=== PATIENT | female | born 1995 | race Caucasian/White ===

== ENCOUNTER 2016-10-02 19:52 | Emergency (ER) | payer OTHER ==
[2016-10-02 20:03] VITALS: BP 130/70; PULSE 79; TEMP 98.1; BMI 24.4
--- NOTE | 2016-10-02 20:29 | PDOC ---
History of Present Illness - General Chief Complaint: Nausea/Vomiting Stated Complaint: NAUSEA/VOMITING Time Seen by Provider: 10/02/16 20:16 History Source: Patient Exam Limitations: No Limitations - History of Present Illness Travel History: No Timing/Duration: reports: intermittent Abdominal Pain Onset Location: reports: epigastric Pain Radiation: reports: no radiation Activities at Onset: reports: none Alleviating Factors: improves with: Belching Past History - Travel Traveled outside of the country in the last 30 days: No Close contact w/someone who was outside of country & ill: No - Past Medical History Allergies/Adverse Reactions: Allergies Allergy/AdvReac Type Severity Reaction Status Date / Time tree and shrub pollen Allergy Mild Cough Verified 10/02/16 20:03 Home Medications: Ambulatory Orders Penicillin V Potassium [Pen Vee K] 500 mg PO TID #21 tablet 08/12/15 - Immunization History Immunization Up to Date: Yes - Psycho/Social/Smoking Cessation Hx Anxiety: No Suicidal Ideation: No Smoking History: Current every day smoker Have you smoked in the past 12 months: Yes Number of Cigarettes Smoked Daily: 7 Information on smoking cessation initiated: No 'Breaking Loose' booklet given: 03/01/15 Hx Alcohol Use: No Drug/Substance Use Hx: Yes Substance Use Type: Marijuana Hx Substance Use Treatment: No Abd/GI Specific PMHX - Complaint Specific PMHX Diverticulitis: No Gall Bladder Disease: No GERD: No Review of Systems - Review of Systems Able to Perform ROS?: Yes Comments:: 10/02/16 20:27 CONSTITUTIONAL: Absent: fever, chills, diaphoresis, generalized weakness, malaise, loss of appetite HEENT: Absent: rhinorrhea, nasal congestion, throat pain, throat swelling, difficulty swallowing, mouth swelling, ear pain, eye pain, visual Changes CARDIOVASCULAR: Absent: chest pain, loss of consciousness, palpitations, irregular heart rate, peripheral edema RESPIRATORY: Absent: cough, shortness of breath, dyspnea with exertion, orthopnea, wheezing, stridor, hemoptysis GASTROINTESTINAL: +epigastric pain, nausea, vomiting, diarrhea Absent: abdominal distension, constipation, melena, hematochezia GENITOURINARY: Absent: dysuria, frequency, urgency, hesitancy, hematuria, flank pain, genital pain MUSCULOSKELETAL: Absent: myalgia, arthralgia, joint swelling SKIN: Absent: rash, itching, pallor HEMATOLOGIC/IMMUNOLOGIC: Absent: easy bleeding, easy bruising, lymphadenopathy, frequent infections ENDOCRINE: Absent: unexplained weight gain, unexplained weight loss, heat intolerance, cold intolerance NEUROLOGIC: Absent: headache, focal weakness or paresthesias, dizziness, unsteady gait, seizure, mental status changes, bladder or bowel incontinence PSYCHIATRIC: Absent: anxiety, depression, suicidal or homicidal ideation, hallucinations. 10/02/16 20:28 Is the patient limited Burmese proficient: No *Physical Exam - Vital Signs Last Vital Signs Temp Pulse Resp BP Pulse Ox 98.1 F 79 18 130/70 100 10/02/16 19:59 10/02/16 19:59 10/02/16 19:59 10/02/16 19:59 10/02/16 19:59 - Physical Exam Comments: 10/02/16 20:28 GENERAL: Well developed, well nourished. Awake and alert. No acute distress. HEENT: Normocephalic, atraumatic. PERRLA, EOMI. No conjunctival pallor. Sclera are non- icteric. Moist mucous membranes. Oropharynx is clear. NECK: Supple. Full ROM. No JVD. Carotid pulses 2+ and symmetric, without bruits. No thyromegaly. No lymphadenopathy. CARDIOVASCULAR: Regular rate and rhythm. No murmurs, rubs, or gallops. Distal pulses are 2+ and symmetric. PULMONARY: No evidence of respiratory distress. Lungs clear to auscultation bilaterally. No wheezing, rales or rhonchi. ABDOMINAL: Soft. Non-tender. Non-distended. No rebound or guarding. No organomegaly. Normoactive bowel sounds. MUSCULOSKELETAL Normal range of motion at all joints. No bony deformities or tenderness. No CVA tenderness. EXTREMITIES: No cyanosis. No clubbing. No edema. No calf tenderness. SKIN: Warm and dry. Normal capillary refill. No rashes. No jaundice. NEUROLOGICAL: Alert, awake, appropriate. Cranial nerves 2-12 intact. No deficits to light touch and temperature in face, upper extremities and lower extremities. No motor deficits in the in face, upper extremities and lower extremities. Normoreflexic in the upper and lower extremities. Normal speech. Toes are down- going bilaterally. Gait is normal without ataxia. PSYCHIATRIC: Cooperative. Good eye contact. Appropriate mood and affect. ED Treatment Course - LABORATORY CBC & Chemistry Diagram: 10/02/16 20:40 10/02/16 20:40 Progress Note - Progress Note Progress Note: 20-year-old female presents to the emergency department complaining of epigastric abdominal cramping after having Sami takeout last evening at approximately 2200 hrs. Pain is described as 3/10 nonradiating intermittent cramping. The pain is alleviated when she belches and there are no exacerbating factors. Patient admits to one episode of vomiting last evening and approximately 4 episodes today. Patient denies any fever, chills, chest pain, shortness of breath, pelvic pain, flank pains, urinary symptoms: Frequency/ urgency/hesitancy, hematuria. Lmp: 09/22/2016 *DC/Admit/Observation/Transfer Diagnosis at time of Disposition: Gastroenteritis Nausea and vomiting Qualifiers: Vomiting type: unspecified Vomiting Intractability: non-intractable Qualified Code(s): R11.2 - Nausea with vomiting, unspecified - Discharge Dispostion Disposition: HOME Condition at time of disposition: Stable Admit: No - Referrals Referrals: STAFF,NOT ON [Primary Care Provider] - Ady Titus MD [Staff Physician] - Luis Villar MD [Staff Physician] - - Patient Instructions Printed Discharge Instructions: DI for Nausea -- Adult, DI for Vomiting -- Adult, DI for Viral Gastroenteritis -- Adult Additional Instructions: Increase fluids Rest Follow up with your physician or the tube laser operator listed on your discharge Return back to the emergency department for severe/persistent or worsening symptoms.
[2016-10-02] MEDS ORDERED: SODIUM CHLORIDE 1,000 ML IV STA (20:32)
[2016-10-02 20:56] LABS: BASOPHIL 0.7 % (0-2.0); EOSINOPHIL 1.3 % (0-4.5); MCH 32.1 pg (25.7-33.7); MCHC 34.2 g/dl (32.0-36.0); MEAN CELL VOLUME 93.8 fl (80-96); MEAN PLT VOLUME 9.9 fl (7.5-11.1); NEUTROPHILS 65.5 % (42.8-82.8); PLATELET COUNT 187 K/MM3 (134-434); RDW 13.6 % (11.6-15.6)
[2016-10-02 20:57] LABS: URINE APPEARANCE SLCLOUDY; URINE BILIRUBIN NEGATIVE (NEGATIVE); URINE BLOOD NEGATIVE (NEGATIVE); URINE COLOR LTYELLOW; URINE GLUCOSE (UA) NEGATIVE (NEGATIVE); URINE KETONE NEGATIVE (NEGATIVE); URINE LEUK ESTERASE NEGATIVE (NEGATIVE); URINE NITRITE NEGATIVE (NEGATIVE); URINE PROTEIN NEGATIVE (NEGATIVE); URINE UROBILINOGEN NEGATIVE E.U./dl (0.2-1.0)
[2016-10-02] MEDS ORDERED: METOCLOPRAMIDE HCL INJECTION 10 MG/2 ML VIAL IVPUSH ONE (21:01)
[2016-10-02] MEDS ORDERED: METOCLOPRAMIDE HCL INJECTION 10 MG/2 ML VIAL ONE (21:11)
[2016-10-02 21:25] LABS: ALBUMIN 4.3 g/dl (3.4-5.0); ALK PHOS 61 U/L (45-117); AMYLASE 85 U/L (25-115); ANION GAP 8 (8-16); BILIRUBIN,TOTAL 0.6 mg/dL (0.2-1.0); CALCIUM 8.6 mg/dL (8.5-10.1); CO2 26 mmol/L (21-32); CREATININE 0.6 mg/dL (0.55-1.02); GLUCOSE,RANDOM 84 mg/dL (74-106); SGPT/ALT 25 U/L (12-78); TOT PROT 7.9 g/dl (6.4-8.2)
[2016-10-02 21:29] LABS: SGOT/AST 19 U/L (15-37)
[2016-10-02 21:45] LABS: PLATELET ESTIMATE ADEQUATE (NORMAL)
== END 2016-10-02 22:16 | disposition home or self-care (01) ==
LOC: JER 19:52 → SUPCPDRO 19:52 → JER 22:16
PROC: 3E033GC Introduction of Other Therapeutic Substance into Peripheral Vein, Percutaneous Approach (ICD-10-PCS; principal; 2016-10-02)
PROC: 3E0337Z Introduction of Electrolytic and Water Balance Substance into Peripheral Vein, Percutaneous Approach (ICD-10-PCS; 2016-10-02)
DX: K52.9 Noninfective gastroenteritis and colitis, unspecified (principal); F17.210 Nicotine dependence, cigarettes, uncomplicated
CPT/HCPCS: 36415; 80053; 81003; 82150; 83690; 84703; 85025; 96361; 96374; 99282-25

== ENCOUNTER 2018-01-21 16:45 | Emergency (ER) | payer OTHER ==
[2018-01-21 16:59] VITALS: BP 140/99; PULSE 83; TEMP 98.2; BMI 25.0
[2018-01-21] MEDS ORDERED: ACETAMINOPHEN 325 MG TABLET (FP) PO ONE (17:28)
--- NOTE | 2018-01-21 17:28 | PDOC ---
History of Present Illness - General Chief Complaint: Bite Stated Complaint: WOUND Time Seen by Provider: 01/21/18 17:07 History Source: Patient - History of Present Illness Timing/Duration: reports: yesterday Location: reports: extremities Past History - Past Medical History Allergies/Adverse Reactions: Allergies Allergy/AdvReac Type Severity Reaction Status Date / Time tree and shrub pollen Allergy Mild Cough Verified 01/21/18 17:09 Home Medications: Ambulatory Orders Acetaminophen [Tylenol] 2 tab PO Q6H #30 capsule 01/21/18 Acyclovir [Zovirax -] 800 mg PO 5XD #35 tablet 01/21/18 COPD: No - Immunization History Immunization Up to Date: Yes - Suicide/Smoking/Psychosocial Hx Smoking History: Current every day smoker Have you smoked in the past 12 months: Yes Number of Cigarettes Smoked Daily: 20 Information on smoking cessation initiated: Yes 'Breaking Loose' booklet given: 01/21/18 Hx Alcohol Use: No Drug/Substance Use Hx: Yes Substance Use Type: Marijuana Hx Substance Use Treatment: No Review of Systems - Review of Systems Constitutional: No: Fever ABD/GI: No: Nausea, Vomiting, Abdominal cramping : No: Dysuria Integumentary: Yes: Rash *Physical Exam - Vital Signs Last Vital Signs Temp Pulse Resp BP Pulse Ox 98.2 F 83 18 140/99 98 01/21/18 16:54 01/21/18 16:54 01/21/18 16:54 01/21/18 16:54 01/21/18 16:54 - Physical Exam General Appearance: Yes: Appropriately Dressed. No: Apparent Distress HEENT: positive: Normal Voice Neck: positive: Supple Respiratory/Chest: negative: Respiratory Distress Integumentary: positive: Dry, Warm, Other (~1-1/2 cm area of erythematous papule w/ central vesicles c/w shingles to postrior aspect of R thigh) Neurologic: positive: Fully Oriented, Alert, Normal Mood/Affect Medical Decision Making - Medical Decision Making 01/21/18 17:37 22-year-old female, approximately 6 weeks by dates, with here with rash. Patient states she developed a painful rash to posterior aspect of right thigh yesterday. Unable to site 2/2 pain. Concerned that she might have been bitten by an insect per patient. Denies any fever or chills. No abd pain, vag bleed of dysuria per pt See exam Shingles in early preg No issues with preg prior to now No as of yet -Dc w/ acyclovir and tylenol as d/w Dr Brewster who also evaluated pt -Discuss w/ pt the high risk of complications w/ TORCH infections, i.e congenital varicella syndrome, to f/u with OB on Tuesday -Reasons to return to ED d/w pt -contact precautions given 01/21/18 17:57 *DC/Admit/Observation/Transfer Diagnosis at time of Disposition: Shingles Qualifiers: Herpes zoster complications: unspecified herpes zoster complication Qualified Code(s): B02.8 - Zoster with other complications - Discharge Dispostion Disposition: HOME Condition at time of disposition: Good - Prescriptions Prescriptions: Acetaminophen [Tylenol] 2 tab PO Q6H #30 capsule Acyclovir [Zovirax -] 800 mg PO 5XD #35 tablet - Referrals Referrals: Jhoana Cabrera MD [Staff Physician] - - Patient Instructions Printed Discharge Instructions: Acyclovir Additional Instructions: You have shingles which is usually a reactivation of chickenpox from childhood. This is contagious only to patients who have never had chickenpox. Take medications as directed. As you are with shingles you need to follow up very closely with an OB/ FINISHED GARMENT INSPECTOR. We have given her the number for Dr. Cabrera. Please call, M.D. first thing Tuesday morning for an appointment. If symptoms worsen as discussed in ER, please return immediately - Post Discharge Activity Forms/Work/School Notes: Back to Work
[2018-01-21] MEDS ORDERED: ACETAMINOPHEN 325 MG TABLET (FP) ONE (17:35)
== END 2018-01-21 17:59 | disposition home or self-care (01) ==
LOC: JERFT 16:45
DX: O26.891 Other specified pregnancy related conditions, first trimester (principal); O98.511 Other viral diseases complicating pregnancy, first trimester; B02.9 Zoster without complications; Z3A.01 Less than 8 weeks gestation of pregnancy
CPT/HCPCS: 99281-25

== ENCOUNTER 2018-03-24 21:53 | Emergency (ER) | payer SELFPAY ==
--- NOTE | 2018-03-24 22:11 | PDOC ---
History of Present Illness - General Stated Complaint: 16 WEEK PREG,CRAMPS,PAIN History Source: Patient - History of Present Illness Initial Comments: 03/24/18 22:12 LMP: 12/27/2017 : none [phone] 03/25/18 01:54 22-year-old female presents to the ER complaining of pelvic cramping for the past 40 minutes prior to her arrival to the ER. Cramps are described as 4/10 nonradiating intermittent discomfort without fever, chills, nausea/vomiting, headache, dizziness, lightheadedness, back pains, chest pain, shortness of breath, abdominal pains, flank pains, vaginal bleed. Past History - Past Medical History Allergies/Adverse Reactions: Allergies Allergy/AdvReac Type Severity Reaction Status Date / Time tree and shrub pollen Allergy Mild Cough Verified 03/24/18 22:38 COPD: No - Immunization History Immunization Up to Date: Yes - Suicide/Smoking/Psychosocial Hx Smoking History: Current every day smoker Have you smoked in the past 12 months: Yes Number of Cigarettes Smoked Daily: 20 'Breaking Loose' booklet given: 01/21/18 Hx Alcohol Use: No Drug/Substance Use Hx: Yes Substance Use Type: Marijuana Hx Substance Use Treatment: No Review of Systems - Review of Systems Able to Perform ROS?: Yes Comments:: 03/25/18 01:53 CONSTITUTIONAL: Absent: fever, chills, diaphoresis, generalized weakness, malaise, loss of appetite HEENT: Absent: rhinorrhea, nasal congestion, throat pain, throat swelling, difficulty swallowing, mouth swelling, ear pain, eye pain, visual Changes CARDIOVASCULAR: Absent: chest pain, loss of consciousness, palpitations, irregular heart rate, peripheral edema RESPIRATORY: Absent: cough, shortness of breath, dyspnea with exertion, orthopnea, wheezing, stridor, hemoptysis GASTROINTESTINAL: Lower pelvic cramps Absent: abdominal pain, abdominal distension, nausea, vomiting, diarrhea, constipation, melena, hematochezia GENITOURINARY: Absent: dysuria, frequency, urgency, hesitancy, hematuria, flank pain, genital pain MUSCULOSKELETAL: Absent: myalgia, arthralgia, joint swelling SKIN: Absent: rash, itching, pallor Is the patient limited Romanian proficient: No *Physical Exam - Physical Exam Comments: 03/25/18 01:54 GENERAL: Well developed, well nourished. Awake and alert. No acute distress. HEENT: Normocephalic, atraumatic. PERRLA, EOMI. No conjunctival pallor. Sclera are non- icteric. Moist mucous membranes. Oropharynx is clear. NECK: Supple. Full ROM. No JVD. Carotid pulses 2+ and symmetric, without bruits. No thyromegaly. No lymphadenopathy. CARDIOVASCULAR: Regular rate and rhythm. No murmurs, rubs, or gallops. Distal pulses are 2+ and symmetric. PULMONARY: No evidence of respiratory distress. Lungs clear to auscultation bilaterally. No wheezing, rales or rhonchi. ABDOMINAL: Soft. Non-tender. Non-distended. No rebound or guarding. No organomegaly. Normoactive bowel sounds. MUSCULOSKELETAL Normal range of motion at all joints. No bony deformities or tenderness. No CVA tenderness. SKIN: Warm and dry. Normal capillary refill. No rashes. No jaundice. Pelvic: External genitalia normal without lesions. Vaginal vault is clear without blood or discharge. Cervix is closed. ED Treatment Course - LABORATORY CBC & Chemistry Diagram: 03/24/18 22:00 03/24/18 22:00 - RADIOLOGY Radiology Studies Ordered: Category Date Time Status TRANSVAGINAL US PREG [US] Stat Ultrasound 03/24/18 21:56 Ordered *DC/Admit/Observation/Transfer Diagnosis at time of Disposition: Qualifiers: Weeks of gestation: 16 weeks Qualified Code(s): Z3A.16 - 16 weeks gestation of - Discharge Dispostion Disposition: HOME Condition at time of disposition: Fair Decision to Admit order: No - Referrals Referrals: Grayson Vargas MD [Staff Physician] - - Patient Instructions Printed Discharge Instructions: DI for Abdominal Pain -- Early [place]: [place] [address].2 Your Ultrasounds shows you are 18 weeks and 1 day Heart beat at 140 Beats per minute Return to the ER for any concerns - Post Discharge Activity
[2018-03-24 22:38] VITALS: BP 121/65; PULSE 102; TEMP 99.2; BMI 25.8
[2018-03-24 23:01] LABS: BASO % 0.2 % (0-2.0); EOS % 2.7 % (0-4.5); HEMATOCRIT 35.1 % (32.4-45.2); HEMOGLOBIN 12.4 GM/dL (10.7-15.3); LYMPH % 27.3 % (8-40); MCHC 35.3 g/dl (32.0-36.0); MEAN CELL VOLUME 93.4 fl (80-96); MEAN PLT VOLUME 9.8 fl (7.5-11.1); MONO % 9.1 % (3.8-10.2); NEUT % 60.7 % (42.8-82.8); PLATELET COUNT 191 K/MM3 (134-434); RBC 3.75 M/mm3 (3.60-5.2); RDW 13.1 % (11.6-15.6); WHITE BLOOD COUNT 5.1 K/mm3 (4.0-10.0)
[2018-03-24 23:07] LABS: URINE APPEARANCE CLEAR; URINE BILIRUBIN NEGATIVE (<2.0 mg/dL); URINE COLOR YELLOW; URINE GLUCOSE (UA) NEGATIVE (NEGATIVE); URINE KETONE NEGATIVE (NEGATIVE); URINE LEUK ESTERASE NEGATIVE (NEGATIVE); URINE NITRITE NEGATIVE (NEGATIVE); URINE PROTEIN NEGATIVE (NEGATIVE); URINE UROBILINOGEN 4.0 E.U/dl mg/dL (0.2-1.0)
[2018-03-24 23:25] LABS: ALBUMIN 3.3 g/dl (3.4-5.0); ANION GAP 9 MMOL/L (8-16); BILIRUBIN,TOTAL 0.1 mg/dL (0.2-1.0); BLOOD UREA NITROGEN 13 mg/dL (7-18); CALCIUM 8.5 mg/dL (8.5-10.1); CHLORIDE 107 mmol/L (98-107); CO2 24 mmol/L (21-32); CREATININE 0.5 mg/dL (0.55-1.02); GLUCOSE,RANDOM 72 mg/dL (74-106); POTASSIUM 3.9 mmol/L (3.5-5.1); SGOT/AST 16 U/L (15-37); SGPT/ALT 23 U/L (12-78); SODIUM 140 mmol/L (136-145); TOT PROT 7.2 g/dl (6.4-8.2)
[2018-03-24 23:40] LABS: ALK PHOS 52 U/L (45-117)
== END 2018-03-25 01:00 | disposition home or self-care (01) ==
LOC: JER 21:53
DX: O26.892 Other specified pregnancy related conditions, second trimester (principal); R10.2 Pelvic and perineal pain; Z3A.16 16 weeks gestation of pregnancy
CPT/HCPCS: 36415; 76815-TC; 80053; 81003; 84702; 85025; 86850; 86900; 86901; 99281-25

== ENCOUNTER 2018-08-31 12:05 | Inpatient (IN) | payer OTHER ==
[2018-08-31] MEDS ORDERED: DINOPROSTONE 10 MG VAGINAL SUPPOSITORY VG ONE (13:00)
[2018-08-31] MEDS ORDERED: SODIUM PHOSPHATE/NA BIPHOS 133 ML ENEMA PR ONE (13:10)
--- NOTE | 2018-08-31 13:32 | HP ---
Past Medical History - Primary Care Physician PCP:: Jhoana Cabrera - Admission Chief Complaint: 22 h/f , 41 weeks by sono & 41.3 weeks by dates is admitted for induction of labor History of Present Illness: PNC at [facility] wt gain during pregn 70lbs Last visit at 36 weks . pt has been seen in L&D at [facility] 08/11, 08/28 & 08/30 for labor asses . FHR tracing category -1 everytime . 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 Weeks Gestation by Dates: 41.3 ...EDC by Dates: 08/21/18 ...EDC by Sono: 08/24/18 (41 weeks by sono ) Infectious Disease: Yes: STD's (h/o HSV positive) Psych: No: Addictions, Anxiety, Bipolar, Depression, Panic, Psychosis, Schizophrenia, Other - Past Surgical History Past Surgical History: Yes: None Hx Myomectomy: No Hx Transabdominal Cerclage: No - Smoking History Smoking history: Current every day smoker Have you smoked in the past 12 months: Yes Aproximately how many cigarettes per day: 20 - Alcohol/Substance Use Hx Alcohol Use: No History of Substance Use: reports: Marijuana (urine drug screen pos 08/11/18) Home Medications - Allergies Allergies/Adverse Reactions: Allergies Allergy/AdvReac Type Severity Reaction Status Date / Time No Known Allergies Allergy Verified 08/28/18 23:13 - Home Medications Home Medications: Ambulatory Orders Vit 108/Iron/Folic AC [ One Tablet] 1 tab PO DAILY 08/11/18 Physical Exam - Maternity Vital Signs: Selected Entries 08/31/18 13:00 Pulse Rate 84 Blood Pressure 115/68 Blood Pressure 83 Mean WT 230 LBS Constitutional: Yes: Well Nourished, Obese Eyes: Yes: WNL HENT: Yes: WNL, Normocephalic, Other Neck: Yes: WNL Cardiovascular: Yes: WNL, Regular Rate and Rhythm Lungs: Clear to auscultation Breast(s): Yes: WNL - Abdominal Exam/OB Fundal Height: 40 Number of Fetuses: Single Presentation: Vertex Contractions: No Monitor Mode: External Heart Rate (range): 150 Heart Rate Location: [facility] Category: I Accelerations: Uniform Decelerations: None - Vaginal Exam/OB Vaginal Bleediing: No Speculum Exam: No Dilatation (cm): close, Effacement (%): unefface Amniotic Membrane Status: Intact Presentation: Vertex/Position Station: -3 - Physical Exam Musculoskeletal: Yes: WNL Extremities: Yes: WNL Edema: LLE: 1+, RLE: 1+ Integumentary: Yes: WNL, Tattoos, Other (skin acne on face) Deep Tendon Reflex Grade: Normal +2 ...Motor Strength: WNL Psychiatric: Yes: WNL, Alert, Oriented Problem List - Problems (1) Post term , 41 weeks Code(s): O48.0 - POST-TERM ; Z3A.41 - 41 WEEKS GESTATION OF (2) GBS bacteriuria Code(s): R82.71 - BACTERIURIA (3) Obese Code(s): E66.9 - OBESITY, UNSPECIFIED (4) Elective induction of labor planned Code(s): TIQ7940 - (5) with care elsewhere, antepartum Code(s): Z34.90 - ENCNTR FOR SUPRVSN OF NORMAL , UNSP, UNSP TRIMESTER (6) Substance abuse affecting , antepartum Code(s): O99.320 - DRUG USE COMPLICATING , UNSPECIFIED TRIMESTER Assessment/Plan 22 yrs , 41.3 wks by dates & 41 weeks by sono admitted for induction of labor urine gbs pos . rx iv ampicillin start when uc are regular cervidil insertion done at 1.00pm . Plan Trial of labor for vaginal delivery Labor management handed over to Dr Alicia NEGRO talent acquisition sourcer after 2.00 PM
[2018-08-31 13:40] VITALS: BMI 34.9
[2018-08-31 15:16] LABS: BASO % 0.1 % (0-2.0); HEMATOCRIT 35.4 % (32.4-45.2); HEMOGLOBIN 12.2 GM/dL (10.7-15.3); LYMPH % 19.6 % (8-40); MCH 32.4 pg (25.7-33.7); MCHC 34.3 g/dl (32.0-36.0); MEAN CELL VOLUME 94.4 fl (80-96); MEAN PLT VOLUME 9.9 fl (7.5-11.1); MONO % 7.7 % (3.8-10.2); NEUT % 71.6 % (42.8-82.8); PLATELET COUNT 166 K/MM3 (134-434); RBC 3.75 M/mm3 (3.60-5.2); RDW 13.6 % (11.6-15.6); WHITE BLOOD COUNT 6.2 K/mm3 (4.0-10.0)
[2018-08-31 15:31] LABS: INR 0.99 (0.83-1.09); PROTHROMBIN TIME (PATIENT) 11.7 SEC (9.7-13.0)
[2018-08-31 15:51] LABS: ALK PHOS 149 U/L (45-117); ANION GAP 9 MMOL/L (8-16); BILIRUBIN,TOTAL 0.4 mg/dL (0.2-1); BLOOD UREA NITROGEN 10 mg/dL (7-18); CALCIUM 8.5 mg/dL (8.5-10.1); CHLORIDE 105 mmol/L (98-107); CO2 24 mmol/L (21-32); CREATININE 0.5 mg/dL (0.55-1.3); GLUCOSE,RANDOM 69 mg/dL (74-106); POTASSIUM 3.8 mmol/L (3.5-5.1); SGOT/AST 16 U/L (15-37); SGPT/ALT 16 U/L (13-61); SODIUM 138 mmol/L (136-145); TOT PROT 7.1 g/dl (6.4-8.2)
[2018-08-31 16:53] LABS: URINE APPEARANCE CLEAR; URINE BILIRUBIN NEGATIVE (<2.0 mg/dL); URINE COLOR YELLOW; URINE GLUCOSE (UA) NEGATIVE (NEGATIVE); URINE KETONE NEGATIVE (NEGATIVE); URINE LEUK ESTERASE NEGATIVE (NEGATIVE); URINE NITRITE NEGATIVE (NEGATIVE); URINE PROTEIN NEGATIVE (NEGATIVE); URINE UROBILINOGEN 4.0 E.U/dl mg/dL (0.2-1.0)
[2018-08-31 17:12] LABS: COCAINE, UR NEGATIVE ng/ml (CUTOFF=300); METHADONE, UR NEGATIVE ng/ml (CUTOFF=300); OPIATES, URI NEGATIVE ng/ml (CUTOFF=300); PHENCYCLIDINE,URINE NEGATIVE ng/ml (CUTOFF=25); URINE AMPHETAMINES NEGATIVE ng/ml (CUTOFF=500); URINE BARBITURATES NEGATIVE ng/ml (CUTOFF=200); URINE BENZODIAZEPINES NEGATIVE ng/ml (CUTOFF=200)
[2018-08-31] MEDS ORDERED: PROMETHAZINE HCL 25 MG/1 ML VIAL IVPB ONE (17:30)
[2018-08-31] MEDS ORDERED: BUTORPHANOL TARTRATE 2 MG/ML VIAL IVPB ONE (17:30)
[2018-08-31] MEDS: DEXTROSE 5%-LACTATED RINGERS 1,000 ML IV SCH ×2 (17:30→22:30)
[2018-08-31] MEDS ORDERED: TUBERCULIN PPD 5 TU/0.1ML SYRINGE (IN PATIENT USE ONLY) ID ONE (18:00)
[2018-09-01] MEDS ORDERED: AMPICILLIN SODIUM 2 GM VIAL ONE (01:04)
[2018-09-01] MEDS ORDERED: AMPICILLIN - 2 GM in SODIUM CHLORIDE 100 ML IVPB ONE (01:30)
[2018-09-01] MEDS: AMPICILLIN - 1 GM in SODIUM CHLORIDE 100 ML IVPB SCH ×3 (05:30→13:24)
[2018-09-01] MEDS ORDERED: AMPICILLIN SODIUM 1 GM VIAL ONE ×3 (05:41→13:09)
[2018-09-01] MEDS ORDERED: OXYTOCIN 30 UNITS in 0.9% NS 30 UNIT/500 ML INFUS.BAG IVPB ONE (05:41)
[2018-09-01] MEDS ORDERED: OXYTOCIN 30 UNITS in 0.9% NS 30 UNIT/500 ML INFUS.BAG IVPB SCH (06:30)
[2018-09-01] MEDS: DEXTROSE 5%-LACTATED RINGERS 1,000 ML IV SCH ×2 (09:00→21:55)
[2018-09-01] MEDS ORDERED: ONDANSETRON 4 MG/2 ML VIAL IVPUSH PRN (12:23)
[2018-09-01] MEDS ORDERED: morphine SULFATE/Preservative Free 0.5 MG/ML (1cc Syringe) ONE (12:34)
[2018-09-01] MEDS ORDERED: OXYTOCIN 20 UNITS in 0.9% NS 40 UNIT/2,000 ML INFUS.BAG IV ONE (13:09)
[2018-09-01] MEDS ORDERED: CITRIC ACID/SODIUM CITRATE 30 ML UNIT-DOSE CUP PO ONE ×2 (14:00→14:07)
[2018-09-01] MEDS ORDERED: ELECTROLYTE-148 SOLN 1,000 ML IV SCH ×3 (14:00→15:00)
[2018-09-01] MEDS ORDERED: WITCH HAZEL 50% (TUCKS) 40 PAD/JAR PAD TP PRN (14:10)
[2018-09-01] MEDS ORDERED: diphenhydrAMINE HCL 25 MG CAPSULE (FP) PO PRN (14:10)
[2018-09-01] MEDS ORDERED: IBUPROFEN 800 MG/8 ML IJ IVPB PRN (14:10)
[2018-09-01] MEDS ORDERED: BENZOCAINE 28 GM HEMORRHOIDAL OINTMENT PR PRN (14:10)
[2018-09-01] MEDS ORDERED: METHYLERGONOVINE MALEATE 0.2 MG/1 ML AMP IM PRN (14:10)
[2018-09-01] MEDS ORDERED: BENZOCAINE 20% 57 GM BOTTLE TP PRN (14:10)
[2018-09-01] MEDS ORDERED: oxyCODONE HCL 5 MG TABLET PO PRN (14:10)
--- NOTE | 2018-09-01 14:14 | PN ---
Progress Note (short form) - Note Progress Note: cx 1 cm 70 vx -4 mi, fhr cat 1 , regular conraction, no progress since 4 am tiday, declined induction, requesting c/s. risks discussed
[2018-09-01] MEDS ORDERED: OXYTOCIN 20 UNITS in 0.9% NS 1,000 ML IV SCH (14:15)
[2018-09-01] MEDS ORDERED: DEXTROSE 5%-LACTATED RINGERS 1,000 ML IV SCH (14:15)
[2018-09-01] MEDS ORDERED: OXYTOCIN 20 UNITS in 0.9% NS 20 UNIT/1,000 ML INFUS.BAG IV SCH (14:15)
[2018-09-01] MEDS ORDERED: LIDO 2%/EPI 1:200000 PRESRVFRE (20 ML SDVIAL) ONE (14:26)
[2018-09-01] MEDS ORDERED: SUCCINYLCHOLINE CHLORIDE 200 MG/10 ML VIAL ONE (14:49)
[2018-09-01] MEDS ORDERED: PROPOFOL 20 ML ONE ×2 (14:49→14:57)
[2018-09-01] MEDS ORDERED: LIDOCAINE HCL/PF 2% SDV 5ML VIAL ONE (14:49)
[2018-09-01] MEDS ORDERED: MIDAZOLAM HCL 2 MG/2 ML SINGLE DOSE VIAL ONE (14:55)
[2018-09-01] MEDS ORDERED: DEXAMETHASONE SOD PHOSPHATE 4 MG/1 ML VIAL ONE (14:56)
[2018-09-01] MEDS ORDERED: KETOROLAC TROMETHAMINE 30 MG/1 ML VIAL ONE (14:56)
[2018-09-01] MEDS ORDERED: PHENYLEPHRINE HCL 10 MG/1 ML SINGLE DOSE VIAL ONE (15:10)
[2018-09-01] MEDS ORDERED: ACETAMINOPHEN 1000 MG/100 ML VIAL (NON FORMULARY) IVPB ONE (15:28)
[2018-09-01] MEDS ORDERED: HYDROmorphone *PCA* 10MG/50ML DISP.SYRIN PCA SCH (15:30)
[2018-09-01 15:36] LABS: ARTERIAL BLOOD GAS BASE EXCESS 0.3 meq/l (-2-2); ARTERIAL BLOOD GAS PCO2 52.1 mmHg (35-45); ARTERIAL BLOOD GAS pH 7.33 (7.35-7.45)
[2018-09-01 15:40] LABS: ARTERIAL BLD GAS O2 SATURATION 39.6 % (90-98.9); ARTERIAL BLOOD GAS PO2 20.3 mmHg (80-100); VENOUS PC02 44.4 mmHg (38-52); VENOUS PH 7.36 (7.32-7.42); VENOUS PO2 29.9 mmHg (28-48)
[2018-09-01] MEDS ORDERED: ACETAMINOPHEN INJECTION 100 ML IVPB ONE (16:13)
[2018-09-01] MEDS ORDERED: HYDROmorphone *PCA* 10MG/50ML DISP.SYRIN PCA ONE (16:26)
[2018-09-01] MEDS: CEFAZOLIN 1 GM/D5W 1 GM/50 ML BAG IVPB SCH (18:00)
[2018-09-01] MEDS ORDERED: CEFAZOLIN 1 GM/D5W 1 GM/50 ML BAG ONE (18:02)
[2018-09-02] MEDS: CEFAZOLIN 1 GM/D5W 1 GM/50 ML BAG IVPB SCH (01:05)
[2018-09-02] MEDS ORDERED: PCA PUMP KEY 1 EACH EACH ONE (01:52)
[2018-09-02] MEDS: ACETAMINOPHEN 325 MG TABLET (FP) PO PRN ×4 (04:35→16:40)
[2018-09-02] MEDS: IBUPROFEN 600 MG TABLET (FP) PO PRN ×5 (04:37→21:51)
[2018-09-02] MEDS: oxyCODONE HCL 5 MG TABLET PO PRN ×5 (04:37→21:52)
[2018-09-02] MEDS: SIMETHICONE 80 MG TAB.CHEW (FP) PO PRN ×5 (04:37→21:52)
--- NOTE | 2018-09-02 08:26 | PN ---
Post Progress Note Post Day: 1 Type of Delivery: Primary C/S Vital Signs: Vital Signs Temperature 98.1 F 09/02/18 06:00 Pulse Rate 71 09/02/18 06:00 Respiratory Rate 18 09/02/18 06:00 Blood Pressure 115/63 09/02/18 06:00 O2 Sat by Pulse Oximetry (%) 99 09/01/18 17:35 Uterus: Yes: Fundus Firm Incision: Yes: Dressing dry and intact Abdomen/GI: Yes: Abdomen soft Lochia: Yes: Rubra Lochia, amount: Small Extremities: Yes: Calves non-tender - Labs Labs: CBC WBC 6.2 K/mm3 (4.0-10.0) 08/31/18 14:20 RBC 3.75 M/mm3 (3.60-5.2) 08/31/18 14:20 Hgb 12.2 GM/dL (10.7-15.3) 08/31/18 14:20 Hct 35.4 % (32.4-45.2) 08/31/18 14:20 MCV 94.4 fl (80-96) 08/31/18 14:20 MCH 32.4 pg (25.7-33.7) 08/31/18 14:20 MCHC 34.3 g/dl (32.0-36.0) 08/31/18 14:20 RDW 13.6 % (11.6-15.6) 08/31/18 14:20 Plt Count 166 K/MM3 (134-434) 08/31/18 14:20 MPV 9.9 fl (7.5-11.1) 08/31/18 14:20 Absolute Neuts (auto) 4.5 K/mm3 (1.5-8.0) 08/31/18 14:20 Neutrophils % 71.6 % (42.8-82.8) 08/31/18 14:20 Lymphocytes % 19.6 % (8-40) D 08/31/18 14:20 Monocytes % 7.7 % (3.8-10.2) 08/31/18 14:20 Eosinophils % 1.0 % (0-4.5) 08/31/18 14:20 Basophils % 0.1 % (0-2.0) 08/31/18 14:20 Nucleated RBC % 0 % (0-0) 08/31/18 14:20 Assessment/Plan 22yo s/p PLTCS, POD#1 Routine PP care Po pain control OOB, ambulate Labs reviewed Anticipate d/c to home by POD#4
--- NOTE | 2018-09-02 09:07 | PN ---
Progress Note (short form) - Note Progress Note: POD #1 s/p C/s under GA. Pain is well controlled today; HYDROGEOLOGIST was d/c'ed, and pt on PO pain meds. Able to ambulate without issue. No anesthetic complications/ difficulties noted.
[2018-09-02 10:25] LABS: BASO % 0.2 % (0-2.0); EOS % 0.5 % (0-4.5); HEMATOCRIT 29.9 % (32.4-45.2); HEMOGLOBIN 10.2 GM/dL (10.7-15.3); LYMPH % 13.8 % (8-40); MCHC 34.1 g/dl (32.0-36.0); MEAN CELL VOLUME 93.9 fl (80-96); MEAN PLT VOLUME 10.6 fl (7.5-11.1); MONO % 5.5 % (3.8-10.2); PLATELET COUNT 145 K/MM3 (134-434); RBC 3.18 M/mm3 (3.60-5.2); RDW 13.5 % (11.6-15.6)
[2018-09-02] MEDS: ENOXAPARIN NA (PORCINE) 40 MG/0.4 ML DISP.SYRIN SQ SCH (10:45)
[2018-09-02] MEDS ORDERED: BISACODYL 10 MG SUPP.RECT PR PRN (14:10)
[2018-09-03] MEDS: IBUPROFEN 600 MG TABLET (FP) PO PRN ×6 (02:24→23:34)
[2018-09-03] MEDS: oxyCODONE HCL 5 MG TABLET PO PRN ×6 (02:25→23:34)
[2018-09-03] MEDS: ACETAMINOPHEN 325 MG TABLET (FP) PO PRN ×3 (07:40→17:13)
[2018-09-03] MEDS: SIMETHICONE 80 MG TAB.CHEW (FP) PO PRN ×5 (07:41→23:35)
--- NOTE | 2018-09-03 09:36 | PN ---
Post Progress Note Post Day: 2 Type of Delivery: Primary C/S Vital Signs: Vital Signs Temperature 98.3 F 09/02/18 21:00 Pulse Rate 75 09/02/18 21:00 Respiratory Rate 18 09/02/18 21:00 Blood Pressure 92/50 L 09/02/18 21:00 O2 Sat by Pulse Oximetry (%) 99 09/01/18 17:35 Uterus: Yes: Fundus below umbilicus Incision: Yes: Dressing dry and intact Abdomen/GI: Yes: Abdomen soft, Passing flatus, Tolerating PO Lochia: Yes: Rubra Lochia, amount: Small Extremities: Yes: Calves non-tender Activity: Ambulating - Labs Labs: CBC WBC 12.0 K/mm3 (4.0-10.0) H 09/02/18 08:10 RBC 3.18 M/mm3 (3.60-5.2) L 09/02/18 08:10 Hgb 10.2 GM/dL (10.7-15.3) L 09/02/18 08:10 Hct 29.9 % (32.4-45.2) L D 09/02/18 08:10 MCV 93.9 fl (80-96) 09/02/18 08:10 MCH 32.0 pg (25.7-33.7) 09/02/18 08:10 MCHC 34.1 g/dl (32.0-36.0) 09/02/18 08:10 RDW 13.5 % (11.6-15.6) 09/02/18 08:10 Plt Count 145 K/MM3 (134-434) 09/02/18 08:10 MPV 10.6 fl (7.5-11.1) 09/02/18 08:10 Absolute Neuts (auto) 9.6 K/mm3 (1.5-8.0) H 09/02/18 08:10 Neutrophils % 80.0 % (42.8-82.8) 09/02/18 08:10 Lymphocytes % 13.8 % (8-40) D 09/02/18 08:10 Monocytes % 5.5 % (3.8-10.2) 09/02/18 08:10 Eosinophils % 0.5 % (0-4.5) 09/02/18 08:10 Basophils % 0.2 % (0-2.0) 09/02/18 08:10 Nucleated RBC % 0 % (0-0) 09/02/18 08:10 Assessment/Plan 22yo s/p PLTCS, POD#2 Routine PP care Po pain control OOB, ambulate Labs reviewed Anticipate d/c to home by POD#4
[2018-09-03] MEDS: ENOXAPARIN NA (PORCINE) 40 MG/0.4 ML DISP.SYRIN SQ SCH (09:54)
[2018-09-03] MEDS ORDERED: FLU VACCINE QUAD 60 MCG/0.5 ML (MDV 18-19) IM ONE (10:00)
[2018-09-03] MEDS ORDERED: PNEUMOC 13-VAL CONJ-DIP CRM/PF 0.5 ML DISP.SYRIN IM ONE (10:00)
[2018-09-03] MEDS ORDERED: PNEUMOCOCCAL 23 VACCINE 0.5 ML VIAL IM ONE (10:00)
[2018-09-03] MEDS ORDERED: DIPHTH,PERTUSS(ACELL),TET 0.5 ML DISP.SYRIN IM ONE (10:00)
--- NOTE | 2018-09-03 19:28 | OP ---
DATE OF OPERATION: 09/01/2018 PREOPERATIVE DIAGNOSIS: , 41 weeks, postdates, with cervical induction, induction. PREOPERATIVE DIAGNOSIS: , 41 weeks, postdates, with cervical induction, induction. PROCEDURE: Primary low segment transverse section SURGEON: Grayson Vargas MD ANESTHESIA: General, Valdo Crawley MD ESTIMATED BLOOD LOSS: 900 mL. FINDINGS: Live baby, Apgars 8 and 9. OPERATION: The patient was taken to the operating room and underwent adequate general anesthesia. A Pfannenstiel abdominal skin incision was made. The abdominal wall was cut layer by layer until peritoneum was exposed and incised. Upon entering the abdominal cavity, the lower uterine segment was identified and uterovesical fold of peritoneum was established. Bladder was pushed down with the lower blade of the Power retractor in the pelvis. A low transverse uterine incision was made and the incision extended laterally. The amniotic sac was entered. Clear fluid. Head delivered from occiput posterior position. Nasopharynx was suctioned and live baby was delivered without any difficulty. Placenta was delivered manually. The uterine cavity was cleaned of all remaining tissue. Uterine incision was closed in 2 layers, 1st layer with 0-Biosyn continuous suture, the 2nd layer with 0-Biosyn to imbricate the 1st layer. The bladder flap was closed with 0-Biosyn continuous suture. Both tubers and ovaries were checked and normal. No active bleeding was seen. All the lap pad, sponge and instrument counts were correct. The peritoneum was closed with 0-Biosyn continuous suture. Muscles were brought together with interrupted suture of 0-Biosyn. Fascia was closed with 0-Biosyn continuous suture. Subcutaneous fat with interrupted suture of 0-Biosyn and the skin was closed with allie. The patient tolerated the procedure well, left the OR in good condition. Chad [id number]
[2018-09-03] MEDS ORDERED: diphenhydrAMINE HCL 25 MG CAPSULE (FP) PO PRN (21:57)
[2018-09-03] MEDS ORDERED: SENNOSIDES/DOCUSATE COMBO (SENNA PLUS) TABLET (UD) PO PRN (22:00)
[2018-09-03] MEDS: valACYclovir HCL 500 MG TABLET (FP) PO SCH (22:39)
[2018-09-04] MEDS: IBUPROFEN 600 MG TABLET (FP) PO PRN ×4 (02:45→18:03)
[2018-09-04] MEDS: oxyCODONE HCL 5 MG TABLET PO PRN ×3 (02:46→21:42)
[2018-09-04] MEDS: SIMETHICONE 80 MG TAB.CHEW (FP) PO PRN ×3 (06:22→18:03)
--- NOTE | 2018-09-04 06:59 | PN ---
Post Progress Note - Subjective Subjective: Still complaining of bad pain, worse with ambulation. Using oxy ATC Post Day: 3 Type of Delivery: Primary C/S Vital Signs: Vital Signs Temperature 98 F 09/03/18 21:00 Pulse Rate 82 09/03/18 21:00 Respiratory Rate 18 09/03/18 21:00 Blood Pressure 130/77 09/03/18 21:00 O2 Sat by Pulse Oximetry (%) 99 09/01/18 17:35 Uterus: Yes: Fundus Firm, Fundus below umbilicus Incision: Yes: Dennis intact Abdomen/GI: Yes: Abdomen soft Lochia: Yes: Rubra Lochia, amount: Small Extremities: Yes: Calves non-tender Activity: Ambulating - Labs Labs: CBC WBC 12.0 K/mm3 (4.0-10.0) H 09/02/18 08:10 RBC 3.18 M/mm3 (3.60-5.2) L 09/02/18 08:10 Hgb 10.2 GM/dL (10.7-15.3) L 09/02/18 08:10 Hct 29.9 % (32.4-45.2) L D 09/02/18 08:10 MCV 93.9 fl (80-96) 09/02/18 08:10 MCH 32.0 pg (25.7-33.7) 09/02/18 08:10 MCHC 34.1 g/dl (32.0-36.0) 09/02/18 08:10 RDW 13.5 % (11.6-15.6) 09/02/18 08:10 Plt Count 145 K/MM3 (134-434) 09/02/18 08:10 MPV 10.6 fl (7.5-11.1) 09/02/18 08:10 Absolute Neuts (auto) 9.6 K/mm3 (1.5-8.0) H 09/02/18 08:10 Neutrophils % 80.0 % (42.8-82.8) 09/02/18 08:10 Lymphocytes % 13.8 % (8-40) D 09/02/18 08:10 Monocytes % 5.5 % (3.8-10.2) 09/02/18 08:10 Eosinophils % 0.5 % (0-4.5) 09/02/18 08:10 Basophils % 0.2 % (0-2.0) 09/02/18 08:10 Nucleated RBC % 0 % (0-0) 09/02/18 08:10 Assessment/Plan 22yo s/p PLTCS, POD#3 Routine PP care Po pain control OOB, ambulate Labs reviewed Abdominal binder Encouraged to decrease oxy use and use Motrin ATC with Oxy for only intense breakthrough pain Anticipate d/c to home by POD#4 Jasmin Guido MD
[2018-09-04 07:22] LABS: BASO % 0.1 % (0-2.0); EOS % 1.9 % (0-4.5); HEMATOCRIT 27.3 % (32.4-45.2); HEMOGLOBIN 9.3 GM/dL (10.7-15.3); LYMPH % 14.8 % (8-40); MCH 32.1 pg (25.7-33.7); MCHC 34.1 g/dl (32.0-36.0); MEAN CELL VOLUME 94.2 fl (80-96); MEAN PLT VOLUME 9.7 fl (7.5-11.1); MONO % 7.1 % (3.8-10.2); NEUT % 76.1 % (42.8-82.8); PLATELET COUNT 140 K/MM3 (134-434); RDW 13.6 % (11.6-15.6); WHITE BLOOD COUNT 5.9 K/mm3 (4.0-10.0)
[2018-09-04] MEDS: ENOXAPARIN NA (PORCINE) 40 MG/0.4 ML DISP.SYRIN SQ SCH (09:53)
[2018-09-04] MEDS: valACYclovir HCL 500 MG TABLET (FP) PO SCH ×2 (09:53→21:42)
[2018-09-04] MEDS: ACETAMINOPHEN 325 MG TABLET (FP) PO PRN ×3 (13:16→21:42)
[2018-09-05] MEDS: ACETAMINOPHEN 325 MG TABLET (FP) PO PRN ×2 (06:19→11:32)
[2018-09-05] MEDS: oxyCODONE HCL 5 MG TABLET PO PRN (06:20)
[2018-09-05] MEDS: SIMETHICONE 80 MG TAB.CHEW (FP) PO PRN ×2 (06:20→11:32)
[2018-09-05 09:18] VITALS: BP 120/71; PULSE 78; TEMP 98.1
[2018-09-05] MEDS: valACYclovir HCL 500 MG TABLET (FP) PO SCH (09:47)
[2018-09-05] MEDS: ENOXAPARIN NA (PORCINE) 40 MG/0.4 ML DISP.SYRIN SQ SCH (09:48)
--- NOTE | 2018-09-05 10:55 | DS ---
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 Signs: Vital Signs Temperature 98.1 F 09/05/18 09:14 Pulse Rate 78 09/05/18 09:14 Respiratory Rate 18 09/05/18 09:14 Blood Pressure 120/71 09/05/18 09:14 O2 Sat by Pulse Oximetry (%) 99 09/01/18 17:35 Constitutional: Yes: Well Nourished Eyes: Yes: Conjunctiva Clear HENT: Yes: Atraumatic Neck: Yes: Supple Cardiovascular: Yes: Regular Rate and Rhythm Respiratory: Yes: Regular Gastrointestinal: Yes: Normal Bowel Sounds Renal/: Yes: WNL Pelvis: Yes: WNL External Genitalia: Yes: Normal Vaginal Exam: Yes: Normal Cervix: Yes: Normal Uterus: Yes: Normal Breast(s): Yes: WNL Extremities: Yes: WNL Wound/Incision: Yes: [place]amping [place] Intact Neurological: Yes: Alert, Oriented ...Motor Strength: WNL Psychiatric: Yes: Alert, Oriented Labs: CBC, BMP 09/04/18 06:45 08/31/18 14:20 Delivery - Delivery Type of Anesthesia: General Episiotomy/Laceration: None EBL (cc): 900 Delivery, Single - Stages of Labor Date 1st Stage Initiatied: 09/01/18 Time 1st Stage Initiated: 06:30 Date of Delivery: 09/01/18 Time of Delivery: 14:56 Time Placenta Delivered: 14:57 - Condition of 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: Yes Name: Fredy Gallagher Gender: Male Weight: 7 lb 13 oz Position: OP Total Hours ROM (Hrs/Mins): 0/2 - 1 Minute Total Score: 8 5 Minutes Total Score: 9 - [place] Feeding Plan Initial Plan: Elected not to breastfeed exclusively throughout hospitalization Discharge Summary Reason For Visit: INDUCTION OF LABOR Current Active Problems Elective induction of labor planned (Acute) GBS bacteriuria (Acute) Obese (Acute) Post term , 41 weeks (Acute) with care elsewhere, antepartum (Acute) Substance abuse affecting , antepartum (Acute) Procedures: Principal: Primary Hospital Course: Routine post op care Condition: Good - Instructions Diet, Activity, Other Instructions: Regular Diet Referrals: Grayson Vargas MD [Staff Physician] - Disposition: HOME - Home Medications Comprehensive Discharge Medication List: Ambulatory Orders Vit 108/Iron/Folic AC [ One Tablet] 1 tab PO DAILY 08/11/18 Ibuprofen 600 mg PO Q6H PRN #30 tablet 09/04/18 Oxycodone HCl/Acetaminophen [Percocet 5-325 mg Tablet -] 1 - 2 tab PO Q6H PRN # 15 tab MDD 4 09/04/18
[2018-09-05] MEDS: IBUPROFEN 600 MG TABLET (FP) PO PRN (11:33)
--- NOTE | 2018-09-12 15:02 | PATH ---
Surgical Pathology Report Patient Name: BETTYE NIEVES Med. Rec. 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 Specimen(s) Received PLACENTA Clinical History , 41.1 weeks, post dates, failure to dilate, failed induction Final Diagnosis PLACENTA, SECTION: 531 G THIRD TRIMESTER PLACENTA WITH TRIVASCULAR UMBILICAL CORD AND UNREMARKABLE PLACENTAL MEMBRANES. Electronically Signed Areli Wasserman M.D. Gross Description The specimen is received fresh labeled placenta and is a 531 gram, 17.0 x 16.0 x 3.5 cm. placenta with attached membranes and umbilical cord. The attached membranes are butler, translucent with focal opacities and insert marginally. The umbilical cord measures 13 cm. in length and averages 0.8 cm. in diameter. The cord inserts eccentrically, 3 cm. to the nearest margin. No true knots or strictures are identified. Cut surface of the umbilical cord reveals 3 vessels. The surface is gonsalez-blue with minimal fibrin deposition and appropriate caliber vessels. The maternal surface is red-brown with focal defects. Sectioning reveals red-brown, spongy parenchyma. No lesions are identified. Color Print Inspector sections are submitted in three cassettes as follows: 1- membrane rolls and umbilical cord; 2-3- full thickness sections of placenta. 09/11/2018 [facility]09/11/2018
== END 2018-09-05 19:00 | disposition home or self-care (01) | DRG 540 ==
LOC: JLDR 12:05 → J3W 09-01 20:09
PROVIDERS: ADMIT Obstetrics & Gynecology; ATTEND Obstetrics & Gynecology
PROC: 3E0P7VZ Introduction of Hormone into Female Reproductive, Via Natural or Artificial Opening (ICD-10-PCS; 2018-08-31)
PROC: 10D00Z1 Extraction of Products of Conception, Low, Open Approach (ICD-10-PCS; principal; 2018-09-01)
DX: O48.0 Post-term pregnancy (principal); Z3A.41 41 weeks gestation of pregnancy; O99.323 Drug use complicating pregnancy, third trimester; F12.10 Cannabis abuse, uncomplicated; O99.213 Obesity complicating pregnancy, third trimester; E66.9 Obesity, unspecified; Z22.330 Carrier of Group B streptococcus; Z68.35 Body mass index [BMI] 35.0-35.9, adult; Z37.0 Single live birth
CPT/HCPCS: 36415; 36600; 80053; 80307; 81003; 82803; 85025; 85610; 85730; 86593; 86850; 86900; 86901; 88307-TC; 90686; 90715; 90732; G0008; G0009; J0131

== ENCOUNTER 2019-02-27 15:31 | Emergency (ER) | payer OTHER ==
--- NOTE | 2019-02-27 15:36 | PDOC ---
Rapid Medical Evaluation Time Seen by Provider: 02/27/19 15:35 Medical Evaluation: Allergies Allergy/AdvReac Type Severity Reaction Status Date / Time No Known Allergies Allergy Verified 08/31/18 19:05 02/27/19 15:35 I have performed a brief in-person evaluation of this patient. The patient presents with a chief complaint of: sore throat and ear pain x2 days Pertinent physical exam findings: OP erythematous without lesions or exudate. I have ordered the following: strep The patient will proceed to the ED for further evaluation. Discharge Disposition - Diagnosis URI (upper respiratory infection) - Referrals - Patient Instructions - Post Discharge Activity
[2019-02-27 15:38] VITALS: BP 131/59; PULSE 90; TEMP 99.5; BMI 30.4
--- NOTE | 2019-02-27 16:28 | PDOC ---
History of Present Illness - General Chief Complaint: Sore Throat Stated Complaint: SORE THROAT Time Seen by Provider: 02/27/19 15:35 - History of Present Illness Initial Comments: 02/27/19 16:26 23-year-old female without comorbidities presents for evaluation of sore throat without systemic symptoms times one day Past History - Past Medical History Allergies/Adverse Reactions: Allergies Allergy/AdvReac Type Severity Reaction Status Date / Time No Known Allergies Allergy Verified 02/27/19 15:35 Home Medications: Ambulatory Orders Mv-Mn/Iron/FA/Herbal/Digestive [ One Tablet] 1 tab PO DAILY 08/11/18 Ibuprofen 600 mg PO Q6H PRN #30 tablet 09/04/18 Oxycodone HCl/Acetaminophen [Percocet 5-325 mg Tablet -] 1 - 2 tab PO Q6H PRN # 15 tab MDD 4 09/04/18 Asthma: No Cancer: No Cardiac Disorders: No COPD: No Diabetes: No HTN: No Seizures: No Thyroid Disease: No - Immunization History Immunization Up to Date: Yes - Suicide/Smoking/Psychosocial Hx Smoking History: Current every day smoker Have you smoked in the past 12 months: Yes Number of Cigarettes Smoked Daily: 4 Information on smoking cessation initiated: No 'Breaking Loose' booklet given: 01/21/18 Hx Alcohol Use: No Drug/Substance Use Hx: No Substance Use Type: Marijuana Hx Substance Use Treatment: No Review of Systems - Review of Systems Constitutional: No: Fever HEENTM: Yes: Throat Pain *Physical Exam - Vital Signs Last Vital Signs Temp Pulse Resp BP Pulse Ox 99.5 F 90 18 131/59 L 97 02/27/19 15:36 02/27/19 15:36 02/27/19 15:36 02/27/19 15:36 02/27/19 15:36 - Physical Exam Comments: 02/27/19 16:27 HEAD: NC/AT EYES: Conjuntiva clear Ears: Canals and TM's normal NOSE: No d/c THROAT: Moist mucous membrances, oral pharanx clear, uvula midline NECK: Supple without adenopathy CARDIAC: S1 S2 LUNGS: CTA Full and Equal breath sounds ABDOMEN: Soft NT ND MS: Full ROM in all joints without edema NEUROLOGIC: No gross sensory or motor deficits, NVID SKIN: Normal color and temperature no lesions or rashes Medical Decision Making - Medical Decision Making 02/27/19 16:27 Rapid strep negative most likely a viral pharyngitis will treat conservatively *DC/Admit/Observation/Transfer Diagnosis at time of Disposition: URI (upper respiratory infection), Viral pharyngitis - Discharge Dispostion Disposition: HOME Condition at time of disposition: Stable Decision to Admit order: No - Referrals Referrals: Hero Hensley MD [Staff Physician] - - Patient Instructions Printed Discharge Instructions: Viral Pharyngitis, DI for Viral Upper Respiratory Infection -- Adult, DI for Viral Pharyngitis Additional Instructions: Tylenol and Motrin for pain as directed. Return to the emergency room for worsening symptoms. Follow-up with your primary care physician in 1-2 days without fail for further evaluation and treatment options. Rapid strep test today was negative a culture was sent should he require antibiotics we will call you. - Post Discharge Activity
== END 2019-02-27 17:20 | disposition home or self-care (01) ==
LOC: JERFT 15:31
DX: J02.9 Acute pharyngitis, unspecified (principal); J06.9 Acute upper respiratory infection, unspecified; B97.89 Other viral agents as the cause of diseases classified elsewhere
CPT/HCPCS: 87070; 87880; 99281-25

== ENCOUNTER 2019-06-14 10:47 | Emergency (ER) | payer OTHER ==
[2019-06-14 11:06] VITALS: BP 139/75; PULSE 58; TEMP 98.2; BMI 32.3
--- NOTE | 2019-06-14 11:25 | PDOC ---
History of Present Illness - General Chief Complaint: Rash Stated Complaint: BACK RT LEG RASH Time Seen by Provider: 06/14/19 11:06 History Source: Patient Exam Limitations: Clinical Condition - History of Present Illness Initial Comments: 06/14/19 11:39 Patient with no significant past medical history presented with complaint of 2- day history of localized rash to posterior right lower leg which has been very itchy. Patient believes she might have shingles as she had in the past. Denies fever, chills. Denies recent travel or bug bites. Denies any other symptoms Timing/Duration: reports: other (2 days) Past History - Past Medical History Allergies/Adverse Reactions: Allergies Allergy/AdvReac Type Severity Reaction Status Date / Time No Known Allergies Allergy Verified 02/27/19 15:35 Home Medications: Ambulatory Orders Mv-Mn/Iron/FA/Herbal/Digestive [ One Tablet] 1 tab PO DAILY 08/11/18 Ibuprofen 600 mg PO Q6H PRN #30 tablet 09/04/18 Oxycodone HCl/Acetaminophen [Percocet 5-325 mg Tablet -] 1 - 2 tab PO Q6H PRN # 15 tab MDD 4 09/04/18 Doxycycline Hyclate 100 mg PO BID 7 Days #14 tablet 06/14/19 Mupirocin Ointment [Bactroban 2% Ointment -] 1 applic TP BID #1 tube 06/14/19 Asthma: No Cancer: No Cardiac Disorders: No COPD: No Diabetes: No HTN: No Seizures: No Thyroid Disease: No - Immunization History Immunization Up to Date: Yes - Psycho Social/Smoking Cessation Hx Smoking History: Current every day smoker Have you smoked in the past 12 months: Yes Number of Cigarettes Smoked Daily: 3 Information on smoking cessation initiated: No 'Breaking Loose' booklet given: 01/21/18 Hx Alcohol Use: No Drug/Substance Use Hx: No Substance Use Type: Marijuana Hx Substance Use Treatment: No Review of Systems - Review of Systems Able to Perform ROS?: Yes Is the patient limited Icelandic proficient: No Constitutional: No: Chills, Fever, Malaise, Weakness HEENTM: No: Symptoms Reported Respiratory: No: Symptoms reported Cardiac (ROS): No: Symptoms Reported ABD/GI: No: Symptoms Reported Musculoskeletal: Yes: Symptoms Reported, See HPI, Muscle Pain (irritation to back of right leg over rash) Integumentary: Yes: Symptoms Reported, See HPI, Rash (localized rash to back of right leg) Neurological: No: Symptoms reported All Other Systems: Reviewed and Negative *Physical Exam - Vital Signs Last Vital Signs Temp Pulse Resp BP Pulse Ox 98.2 F 58 L 18 139/75 97 06/14/19 10:53 06/14/19 10:53 06/14/19 10:53 06/14/19 10:53 06/14/19 10:53 - Physical Exam General Appearance: Yes: Nourished, Appropriately Dressed. No: Apparent Distress HEENT: positive: Normal ENT Inspection Neck: positive: Supple Respiratory/Chest: positive: Lungs Clear, Normal Breath Sounds. negative: Respiratory Distress, Accessory Muscle Use Cardiovascular: positive: Regular Rhythm, Regular Rate Musculoskeletal: positive: Normal Inspection Extremity: positive: Normal Capillary Refill, Normal Inspection Integumentary: positive: Normal Color, Rash (localized wheels with mild surrounding erythema to dorsal aspect of right lower leg. no open wound. no drainage from site) Neurologic: positive: Fully Oriented, Alert, Normal Response Medical Decision Making - Medical Decision Making 06/14/19 11:39 Patient with no significant past medical history presented with complaint of 2- day history of localized rash to posterior right lower leg which has been very itchy. Patient believes she might have shingles as she had in the past. Denies fever, chills. Denies recent travel or bug bites. Denies any other symptoms Exam significant for 2 cm area of localized wheal with mild surrounding erythema to posterior aspect of right lower leg. No open wound or drainage from site. Patient symptoms likely cellulitis from insect or bug bite. Given unknown etiology of symptoms, patient be discharged home with doxycycline twice daily for a week and topical Bactroban with advised to follow-up with PCP in 2-3 days for reassessment Discharge - Discharge Information Problems reviewed: Yes Clinical Impression/Diagnosis: Cellulitis of right leg without foot Bug bite with infection Qualifiers: Encounter type: initial encounter Qualified Code(s): W57.XXXA - Bitten or stung by nonvenomous insect and other nonvenomous arthropods, initial encounter Condition: Stable Disposition: HOME - Admission No - Additional Discharge Information Prescriptions: Doxycycline Hyclate 100 mg PO BID 7 Days #14 tablet Mupirocin Ointment [Bactroban 2% Ointment -] 1 applic TP BID #1 tube - Follow up/Referral Referrals: Irlanda Mast [Primary Care Provider] - - Patient Discharge Instructions Patient Printed Discharge Instructions: DI for Insect Bites and Stings Additional Instructions: Your symptoms likely infected insect bite. Take prescribed medication as prescribed. Apply prescribed cream twice a day until healed. Follow-up with your primary care next 2-3 days for reassessment - Post Discharge Activity
== END 2019-06-14 11:35 | disposition home or self-care (01) ==
LOC: JERFT 10:47
DX: S80.861A Insect bite (nonvenomous), right lower leg, initial encounter (principal); L03.115 Cellulitis of right lower limb; W57.XXXA Bitten or stung by nonvenomous insect and other nonvenomous arthropods, initial encounter; Y93.89 Activity, other specified; Y92.018 Other place in single-family (private) house as the place of occurrence of the external cause; Y99.8 Other external cause status; F17.210 Nicotine dependence, cigarettes, uncomplicated
CPT/HCPCS: 99281-25

== ENCOUNTER 2023-11-05 14:40 | Emergency (ER) | payer OTHER ==
[2023-11-05 14:47] VITALS: BP 126/88; PULSE 96; RESP 20; TEMP 98.2; BMI 27.4
[2023-11-05] MEDS ORDERED: KETOROLAC TROMETHAMINE 30 MG/1 ML VIAL ONE (15:27)
[2023-11-05] MEDS ORDERED: METOCLOPRAMIDE HCL INJECTION 10 MG/2 ML VIAL ONE (15:27)
[2023-11-05] MEDS: METOCLOPRAMIDE HCL INJECTION 10 MG/2 ML VIAL IVPUSH ONE (15:43)
[2023-11-05] MEDS: SODIUM CHLORIDE 1,000 ML IV STA (15:43)
[2023-11-05] MEDS: KETOROLAC TROMETHAMINE 30 MG/1 ML VIAL IVPUSH ONE (15:43)
[2023-11-05 15:50] LABS: BASO % 0.5 % (0-2.0); EOS % 1.7 % (0-4.5); HEMATOCRIT 39.1 % (32.4-45.2); HEMOGLOBIN 13.1 GM/dL (10.7-15.3); LYMPH % 34.1 % (8-40); MCH 32.4 pg (25.7-33.7); MCHC 33.6 g/dl (32.0-36.0); MEAN CELL VOLUME 96.4 fl (80-96); NEUT % 54.7 % (42.8-82.8); PLATELET COUNT 228 10^3/uL (134-434); RBC 4.06 M/mm3 (3.60-5.2); RDW 13.6 % (11.6-15.6); WHITE BLOOD COUNT 2.8 K/mm3 (4.0-10.0)
[2023-11-05 17:20] LABS: POTASSIUM 3.8 mmol/L (3.5-5.1)
[2023-11-05 17:21] LABS: CALCIUM 8.9 mg/dL (8.5-10.1)
[2023-11-05 17:22] LABS: BLOOD UREA NITROGEN 10.7 mg/dL (7-18)
[2023-11-05 17:25] LABS: CREATININE 0.7 mg/dL (0.55-1.3)
== END 2023-11-05 17:34 | disposition home or self-care (01) ==
LOC: JERFT 14:40
PROC: 3E0333Z Introduction of Anti-inflammatory into Peripheral Vein, Percutaneous Approach (ICD-10-PCS; principal; 2023-11-05)
PROC: 3E033GC Introduction of Other Therapeutic Substance into Peripheral Vein, Percutaneous Approach (ICD-10-PCS; 2023-11-05)
PROC: 3E0337Z Introduction of Electrolytic and Water Balance Substance into Peripheral Vein, Percutaneous Approach (ICD-10-PCS; 2023-11-05)
DX: R51.9 Headache, unspecified (principal); H53.71 Glare sensitivity; Z20.822 Contact with and (suspected) exposure to COVID-19
CPT/HCPCS: 0241U-QW; 36415; 80048; 84703; 85025; 99284-25

== ENCOUNTER 2024-04-11 13:17 | Emergency (ER) | payer OTHER ==
[2024-04-11 13:23] VITALS: BP 121/70; PULSE 92; RESP 18; TEMP 97.8; BMI 26.6
== END 2024-04-11 14:54 | disposition home or self-care (01) ==
LOC: JERFT 13:17
DX: R05.9 Cough, unspecified (principal); J02.9 Acute pharyngitis, unspecified; J06.9 Acute upper respiratory infection, unspecified
CPT/HCPCS: 99283-25